=== PATIENT | male | born 1985 | race Caucasian/White ===

== ENCOUNTER 2023-05-02 | Emergency (ER) | payer OTHER, SELFPAY ==
[2023-05-02 00:05] VITALS: BP 165/83; PULSE 64; RESP 16; TEMP 36.7; O2SAT 99; BMI 20.4
--- NOTE | 2023-05-02 00:15 | CT_ITS ---
[address] [address] Patient Name: ANA GARNER MRN: [id number] date: 1985 Sex: M Assigned Patient Location: ER Current Patient Location: ER Accession/Order Number: [id number] Exam Date: 05/02/2023 00:20 Report Date: 05/02/2023 00:58 At the request of: TONIO SCOTT Procedure: CT cervical spine wo con EXAM: CT head/brain wo con, CT cervical spine wo con HISTORY: head injury COMPARISON: 12/16/2018 TECHNIQUE: Axial CT scans through the head and cervical spine were obtained without IV contrast administration. Dose reduction techniques were achieved by using: automated exposure control and/or adjustment of mA and /or kV according to patient size and/or use of iterative reconstruction technique. CT BRAIN FINDINGS: There is no evidence of acute intracranial hemorrhage or abnormal extra-axial fluid collection. No mass effect or midline shift is seen. There is no evidence of large acute territorial infarction. There is no hydrocephalus. No definite acute fracture is identified. There is mild soft tissue swelling at the vertex. The visualized orbits show no abnormal mass. The visualized paranasal sinuses show no air-fluid level. Mastoid air cells are clear. IMPRESSION: No CT evidence of acute intracranial abnormality. Mild soft tissue swelling at the vertex. CT CERVICAL SPINE FINDINGS: No acute fracture or posttraumatic malalignment is seen. There are multilevel mild posterior spurring. There are mild posterior disc bulging at C3-4, C4-5 and C5-6 levels. There is no significant central canal or neural foramina narrowing. The prevertebral soft tissue space appears normal. Visualized neck shows no adenopathy. There are mild emphysematous changes in bilateral lung apices. IMPRESSION: No acute fracture or posttraumatic malalignment. Mild cervical spondylosis. Electronically authenticated by: LAMAR MARTINEZU Date: 05/02/2023 00:58
--- NOTE | 2023-05-02 00:15 | CT_ITS ---
[address] [address] Patient Name: ANA GARNER MRN: [id number] date: 1985 Sex: M Assigned Patient Location: ER Current Patient Location: ER Accession/Order Number: [id number] Exam Date: 05/02/2023 00:20 Report Date: 05/02/2023 00:58 At the request of: TONIO SCOTT Procedure: CT head/brain wo con EXAM: CT head/brain wo con, CT cervical spine wo con HISTORY: head injury COMPARISON: 12/16/2018 TECHNIQUE: Axial CT scans through the head and cervical spine were obtained without IV contrast administration. Dose reduction techniques were achieved by using: automated exposure control and/or adjustment of mA and /or kV according to patient size and/or use of iterative reconstruction technique. CT BRAIN FINDINGS: There is no evidence of acute intracranial hemorrhage or abnormal extra-axial fluid collection. No mass effect or midline shift is seen. There is no evidence of large acute territorial infarction. There is no hydrocephalus. No definite acute fracture is identified. There is mild soft tissue swelling at the vertex. The visualized orbits show no abnormal mass. The visualized paranasal sinuses show no air-fluid level. Mastoid air cells are clear. IMPRESSION: No CT evidence of acute intracranial abnormality. Mild soft tissue swelling at the vertex. CT CERVICAL SPINE FINDINGS: No acute fracture or posttraumatic malalignment is seen. There are multilevel mild posterior spurring. There are mild posterior disc bulging at C3-4, C4-5 and C5-6 levels. There is no significant central canal or neural foramina narrowing. The prevertebral soft tissue space appears normal. Visualized neck shows no adenopathy. There are mild emphysematous changes in bilateral lung apices. IMPRESSION: No acute fracture or posttraumatic malalignment. Mild cervical spondylosis. Electronically authenticated by: LAMAR TALBOT Date: 05/02/2023 00:58
--- NOTE | 2023-05-02 00:17 | ED_ITS ---
HPI - Head Injury General Chief complaint: Head Injury Stated complaint: HEAD INJURY/FALL Time Seen by Provider: 05/02/23 00:15 Source: patient Mode of arrival: ambulance Limitations: no limitations History of Present Illness HPI Narrative: drinking alcohol at home tonight. loss his balance and fell striking the counter top. did loose consciousness. Was able to get up. Lacerated his occipital scalp and called squad. Arrives AxOx4 and communicating with clear speech. Knows what happen to him. Denies other injury MD Complaint: Reports head injury Related Data Allergies Allergy/AdvReac Type Severity Reaction Status Date / Time No Known Drug Allergies Allergy Verified 05/02/23 00:12 Review of Systems ROS Status of ROS 10 or more systems reviewed and unremarkable except as noted in history and below [facility] Social History Smoking status: Current every day smoker Exam Constitutional Vital Signs - 24 hr 05/02/23 00:05 Temperature 98.1 F Pulse Rate [Monitor] 64 Respiratory Rate 16 Blood Pressure [Left Arm] 165/83 H Pulse Oximetry 99 Oxygen Delivery Method Room Air Common normals: no apparent distress, oriented x3, healthy appearing, alert and well nourished [facility] Head and scalp: laceration (occipital ) Neck & C-Spine Other: neck in hard C-collar Chest Common normals: inspection of chest normal, palpation of chest normal and inspection of breasts normal Respiratory Common normals: normal respiratory effort, no retractions and no use of accessory muscles Cardio Common normals: regular rate, regular rhythm, S1 normal heart sound and S2 normal heart sound Extremity Common normals: normal to inspection and full ROM Neuro Common normals: oriented x3, CN's II-XII intact bilaterally, moves all extremities and no focal motor deficits Psych Appearance: grossly normal Course Vital Signs Vital signs: Vital Signs Temperature 98.1 F 05/02/23 00:05 Pulse Rate 64 05/02/23 00:05 Respiratory Rate 16 05/02/23 00:05 Blood Pressure 165/83 H 05/02/23 00:05 Pulse Oximetry 99 05/02/23 00:05 Oxygen Delivery Method Room Air 05/02/23 00:05 Temperature 98.1 F 05/02/23 00:05 Pulse Rate 64 05/02/23 00:05 Respiratory Rate 16 05/02/23 00:05 Blood Pressure 165/83 H 05/02/23 00:05 Pulse Oximetry 99 05/02/23 00:05 Oxygen Delivery Method Room Air 05/02/23 00:05 MDM - Head Injury MDM Narrative Medical decision making narrative: patient drinking alcohol at home and fell striking the counter with the back of his head. Did loose consciousness for a short while. presents AxOx4. lac occipital scalp repaired with kermit. CT brain and C-spine without acute findngs. alcohol level 290s. Despite is alcohol level he is awake and talking with clear speech. Patient and family informed of the elevated alcohol level but are comfortable going home. Lab Data Labs: Lab Results 05/02/23 Range/Units 00:36 WBC 6.5 (4.0-11.0) 10^3/uL RBC 4.72 (4.70-6.10) 10^6/uL Hgb 15.8 (14.0-18.0) g/dL Hct 44.1 (42.0-54.0) % MCV 93.4 (80.0-94.0) fL MCH 33.5 (25.9-34.0) pg MCHC 35.8 H (29.9-35.2) g/dL RDW 12.3 (11.0-15.0) % Plt Count 241 (150-450) 10^3/uL MPV 8.4 L (9.5-13.5) fL Neut % (Auto) 48.5 (43.0-75.0) % Lymph % (Auto) 40.7 (20.5-60.0) % [place] % (Auto) 7.1 (1.7-12.0) % Eos % (Auto) 2.3 (0.9-7.0) % Baso % (Auto) 0.9 (0.2-2.0) % Neut # (Auto) 3.2 (1.4-6.5) 10^3/uL Lymph # (Auto) 2.7 (1.2-3.8) 10^3/uL [place] # (Auto) 0.5 (0.3-0.8) 10^3/uL Eos # (Auto) 0.2 (0.0-0.7) 10^3/uL Baso # (Auto) 0.1 (0.0-0.1) 10^3/uL Abs Immat Gran (auto) 0.03 (0.00-0.03) 10^3/uL Imm/Tot Granulo (auto) 0.5 (0.0-0.5) % Sodium 144 (136-145) mmol/L Potassium 3.9 (3.5-5.1) mmol/L Chloride 106 (98-107) mmol/L Carbon Dioxide 29.1 (21.0-32.0) mmol/L Anion Gap 12.8 BUN 8.0 (7.0-18.0) mg/dL Creatinine 0.93 (0.70-1.30) mg/dL Est GFR ( Amer) >60 (>=60) Est GFR (Non-Af Amer) >60 (>=60) BUN/Creatinine Ratio 8.6 Glucose 104 (74-106) mg/dL Calcium 8.7 (8.5-10.1) mg/dL Total Bilirubin 0.3 (0.2-1.0) mg/dL AST 24 (15-37) U/L ALT 30 (16-63) U/L Alkaline Phosphatase 97 (46-116) U/L Total Protein 7.6 (6.4-8.2) g/dL Albumin 3.9 (3.4-5.0) g/dL Globulin 3.7 g/dL Albumin/Globulin Ratio 1.1 Ethanol Quant 297 mg/dL Discharge Plan Discharge Chief Complaint: Head Injury Clinical Impression: Laceration of occipital region of scalp, Closed head injury, Concussion with loss of consciousness Instructions: Concussion (ED), Head Laceration (ED) Additional Instructions: have wound rechecked in 3-4 days and kermit removed in 10 Stand Alone Forms: Portal Instructions Referrals: Fawad Phipps MD [Physician] - 1 week Procedures ED Procedure Instructions Procedures Procedures: 5cm occipital laceration. linear lac. no associated swelling. Site cleaned with betadine and rinsed with saline. closed with # 9 kermit. Tolerated well
[2023-05-02 00:42] LABS: Basophils Absolute Auto 0.1 10^3/uL (0.0-0.1); Basophils Percent Auto 0.9 % (0.2-2.0); Eosinophils Absolute Auto 0.2 10^3/uL (0.0-0.7); Eosinophils Percent Auto 2.3 % (0.9-7.0); Hematocrit 44.1 % (42.0-54.0); Hemoglobin 15.8 g/dL (14.0-18.0); Immature Granulocytes Abs Auto 0.03 10^3/uL (0.00-0.03); Immature Granulocytes Pct Auto 0.5 % (0.0-0.5); Lymphocytes Absolute Auto 2.7 10^3/uL (1.2-3.8); Lymphocytes Percent Auto 40.7 % (20.5-60.0); Mean Corpuscular HGB Conc 35.8 g/dL (29.9-35.2); Mean Corpuscular Hemoglobin 33.5 pg (25.9-34.0); Mean Corpuscular Volume 93.4 fL (80.0-94.0); Mean Platelet Volume 8.4 fL (9.5-13.5); Monocytes Absolute Auto 0.5 10^3/uL (0.3-0.8); Monocytes Percent Auto 7.1 % (1.7-12.0); Neutrophils Absolute Auto 3.2 10^3/uL (1.4-6.5); Neutrophils Percent Auto 48.5 % (43.0-75.0); Platelet Count 241 10^3/uL (150-450); Red Blood Count 4.72 10^6/uL (4.70-6.10); Red Cell Distribution Width 12.3 % (11.0-15.0); White Blood Count 6.5 10^3/uL (4.0-11.0)
[2023-05-02] MEDS: ADACEL DIPH,PERTUSS(ACELL),TET VAC/PF 0.5 ML ADULT SYRINGE IM (00:55)
[2023-05-02 00:57] LABS: Alanine Aminotransferase 30 U/L (16-63); Albumin Globulin Ratio 1.1; Albumin Level 3.9 g/dL (3.4-5.0); Alkaline Phosphatase 97 U/L (46-116); Anion Gap 12.8; Aspartate Amino Transferase 24 U/L (15-37); BUN Creatinine Ratio 8.6; Bilirubin Total 0.3 mg/dL (0.2-1.0); Calcium 8.7 mg/dL (8.5-10.1); Carbon Dioxide 29.1 mmol/L (21.0-32.0); Chloride 106 mmol/L (98-107); Estimated GFR (African America >60 (>=60); Estimated GFR (Non-African Ame >60 (>=60); Ethanol 297 mg/dL; Globulin 3.7 g/dL; Glucose 104 mg/dL (74-106); Potassium 3.9 mmol/L (3.5-5.1); Sodium 144 mmol/L (136-145); Total Protein 7.6 g/dL (6.4-8.2)
== END 2023-05-02 05:55 | disposition home or self-care (01) ==
PROVIDERS: Emergency Provider Internal Medicine
DX: S01.01XA Laceration without foreign body of scalp, initial encounter (principal); S09.8XXA Other specified injuries of head, initial encounter; S06.0X1A Concussion with loss of consciousness of 30 minutes or less, initial encounter; W19.XXXA Unspecified fall, initial encounter; Z23 Encounter for immunization; F17.210 Nicotine dependence, cigarettes, uncomplicated
CPT/HCPCS: 12001; 36415; 70450; 72125; 80053; 80320; 85025; 90471; 90715; 99284

== ENCOUNTER 2023-11-11 07:40 | Emergency (ER) | payer OTHER, SELFPAY ==
[2023-11-11 07:43] VITALS: BP 149/82; PULSE 63; RESP 16; TEMP 36.5; O2SAT 97; BMI 21.8
[2023-11-11 07:45] VITALS: BP 149/82
--- NOTE | 2023-11-11 07:52 | ECG_ITS ---
[facility] Test Date: 2023-11-11 Pat Name: ANA GARNER Department: Room: - Gender: Male [employer]: : 1985 Requested By: Order Number: [id number] Reading MD: GEGE FARIAS Measurements Intervals [place] Rate: 55 P: 53 CA: 132 QRS: 50 QRSD: 102 T: 58 QT: 420 QTc: 409 Interpretive Statements 1100 Sinus bradycardia 2440 Incomplete right bundle branch block 9130 borderline ECG No previous ECG available for comparison Electronically Signed On 11-13-2023 12:06:06 EST by GEGE FARIAS
--- NOTE | 2023-11-11 07:53 | ED.SYNCOPE1 ---
HPI - Syncope General Chief Complaint: Syncope Stated Complaint: SYNCOPE Time Seen by Provider: 11/11/23 07:45 Source: patient Mode of arrival: Wheelchair History of Present Illness HPI narrative: 38-year-old male presents for syncope. She hasn't been feeling well for about four days. He's had cough and congestion and his appetite has been poor. He's been nauseous but no vomiting or diarrhea. He passed out and his friend's truck today. No injury. Related Data Previous Rx's Medication Instructions Recorded ondansetron 4 mg disintegrating 4 mg PO Q6H PRN nausea and 11/11/23 tablet vomiting #20 tabs Allergies Allergy/AdvReac Type Severity Reaction Status Date / Time No Known Drug Allergies Allergy Verified 05/02/23 00:12 Review of Systems ROS Narrative A ten point review of systems is negative except as noted above. PFSH PFSH Social History Smoking status: Current every day smoker Exam Narrative Exam Narrative: Nurses note and vital signs reviewed and patient is not hypoxic. General: The patient appears well and in no apparent distress. Patient is resting comfortably on cart. Skin: Warm, dry, no pallor noted. There is no rash noted. Head: Normocephalic, atraumatic Eye: Normal conjunctiva, no drainage Ears, Nose, Mouth, and Throat: oral mucosa is moist. Nares patent. Cardiovascular: Regular Rate and Rhythm Respiratory: Patient is in no distress, no accessory muscle use, lungs are clear to auscultation, no wheezing, rales or rhonchi Back: non-tender GI: Normal bowel sounds, no tenderness to palpation, no masses appreciated. No rebound, guarding, or rigidity noted. Musculoskeletal: The patient has no evidence of calf tenderness, no pitting edema, symmetrical pulses noted bilaterally Neurological: A&O, normal speech Psychiatric: Cooperative Constitutional Vital Signs, click to edit/add: Last Vital Signs Temp 97.7 F 11/11/23 07:43 Pulse 49 L 11/11/23 08:20 Resp 12 11/11/23 08:20 BP 139/80 11/11/23 07:59 Pulse Ox 96 11/11/23 08:20 O2 Del Method Room Air 11/11/23 07:43 Course Vital Signs Vital signs: Vital Signs Temperature 97.7 F 11/11/23 07:43 Pulse Rate 63 11/11/23 07:43 Respiratory Rate 16 11/11/23 07:43 Blood Pressure 149/82 H 11/11/23 07:43 Pulse Oximetry 97 11/11/23 07:43 Oxygen Delivery Method Room Air 11/11/23 07:43 Temperature 97.7 F 11/11/23 07:43 Pulse Rate 49 L 11/11/23 08:20 Respiratory Rate 12 11/11/23 08:20 Blood Pressure 139/80 11/11/23 07:59 Pulse Oximetry 96 11/11/23 08:20 Oxygen Delivery Method Room Air 11/11/23 07:43 MDM - Syncope MDM Narrative Medical decision making narrative: The patient's workup is negative and he feels improved after IV fluids. He'll be discharged home. Treatment diagnosis and follow-up were discussed with the patient. Differential Diagnosis Differential diagnosis: Likely other (viral illness, dehydration, acute kidney injury, cardiac dysrhythmia) Lab Data Attestation: I reviewed the patient's lab results. Labs: Lab Results 11/11/23 Range/Units 08:00 WBC 5.9 (4.0-11.0) 10^3/uL RBC 4.68 L (4.70-6.10) 10^6/uL Hgb 15.6 (14.0-18.0) g/dL Hct 43.3 (42.0-54.0) % MCV 92.5 (80.0-94.0) fL MCH 33.3 (25.9-34.0) pg MCHC 36.0 H (29.9-35.2) g/dL RDW 11.3 (11.0-15.0) % Plt Count 276 (150-450) 10^3/uL MPV 8.9 L (9.5-13.5) fL Neut % (Auto) 63.3 (43.0-75.0) % Lymph % (Auto) 23.6 (20.5-60.0) % [place] % (Auto) 10.8 (1.7-12.0) % Eos % (Auto) 1.2 (0.9-7.0) % Baso % (Auto) 0.8 (0.2-2.0) % Neut # (Auto) 3.8 (1.4-6.5) 10^3/uL Lymph # (Auto) 1.4 (1.2-3.8) 10^3/uL [place] # (Auto) 0.6 (0.3-0.8) 10^3/uL Eos # (Auto) 0.1 (0.0-0.7) 10^3/uL Baso # (Auto) 0.1 (0.0-0.1) 10^3/uL Abs Immat Gran (auto) 0.02 (0.00-0.03) 10^3/uL Imm/Tot Granulo (auto) 0.3 (0.0-0.5) % Sodium 140 (136-145) mmol/L Potassium 3.6 (3.5-5.1) mmol/L Chloride 102 (98-107) mmol/L Carbon Dioxide 31.4 (21.0-32.0) mmol/L Anion Gap 10.2 BUN 10.0 (7.0-18.0) mg/dL Creatinine 0.82 (0.70-1.30) mg/dL Est GFR ( Amer) >60 (>=60) Est GFR (Non-Af Amer) >60 (>=60) BUN/Creatinine Ratio 12.2 Glucose 109 H (74-106) mg/dL Calcium 8.9 (8.5-10.1) mg/dL Influenza Type A Ag Negative Influenza Type B Ag Negative SARS-CoV-2 Ag (CV2AG) Negative (NEGATIVE) ECG Data Attestation: I personally reviewed and interpreted this ECG as follows: (EKG on my interpretation shows normal sinus rhythm with no acute changes and a rate of 55.) Discharge Plan Discharge Chief Complaint: Syncope Clinical Impression: Syncope, Viral illness Patient Disposition: Home, Self-Care Time of Disposition Decision: 09:09 Condition: Good Mode of Transportation: Private Vehicle Prescriptions / Home Meds: New ondansetron 4 mg tablet,disintegrating 4 mg PO Q6H PRN (Reason: nausea and vomiting) Qty: 20 0RF Instructions: Syncope (ED), Viral Syndrome (ED) Stand Alone Forms: Portal Instructions Referrals: Physician,Non-Staff, MD [Primary Care Provider] - 1 week
[2023-11-11 07:57] VITALS: PULSE 63; RESP 20
[2023-11-11 07:59] VITALS: BP 139/80; PULSE 59; RESP 22; O2SAT 98
[2023-11-11] MEDS: 0.9 % SODIUM CHLORIDE 1,000 ML 1000 ML IV (08:09)
[2023-11-11] MEDS: ONDANSETRON PF 4 MG/2 ML VIAL IV (08:09)
[2023-11-11 08:10] VITALS: PULSE 59; RESP 21; O2SAT 99
[2023-11-11 08:12] LABS: Basophils Absolute Auto 0.1 10^3/uL (0.0-0.1); Basophils Percent Auto 0.8 % (0.2-2.0); Eosinophils Absolute Auto 0.1 10^3/uL (0.0-0.7); Eosinophils Percent Auto 1.2 % (0.9-7.0); Hematocrit 43.3 % (42.0-54.0); Hemoglobin 15.6 g/dL (14.0-18.0); Immature Granulocytes Abs Auto 0.02 10^3/uL (0.00-0.03); Immature Granulocytes Pct Auto 0.3 % (0.0-0.5); Lymphocytes Absolute Auto 1.4 10^3/uL (1.2-3.8); Lymphocytes Percent Auto 23.6 % (20.5-60.0); Mean Corpuscular Hemoglobin 33.3 pg (25.9-34.0); Mean Corpuscular Volume 92.5 fL (80.0-94.0); Mean Platelet Volume 8.9 fL (9.5-13.5); Monocytes Absolute Auto 0.6 10^3/uL (0.3-0.8); Monocytes Percent Auto 10.8 % (1.7-12.0); Neutrophils Absolute Auto 3.8 10^3/uL (1.4-6.5); Neutrophils Percent Auto 63.3 % (43.0-75.0); Platelet Count 276 10^3/uL (150-450); Red Blood Count 4.68 10^6/uL (4.70-6.10); Red Cell Distribution Width 11.3 % (11.0-15.0); White Blood Count 5.9 10^3/uL (4.0-11.0)
[2023-11-11 08:20] VITALS: PULSE 49; RESP 12; O2SAT 96
[2023-11-11 08:24] LABS: Anion Gap 10.2; BUN Creatinine Ratio 12.2; Calcium 8.9 mg/dL (8.5-10.1); Carbon Dioxide 31.4 mmol/L (21.0-32.0); Chloride 102 mmol/L (98-107); Estimated GFR (African America >60 (>=60); Estimated GFR (Non-African Ame >60 (>=60); Glucose 109 mg/dL (74-106); Influenza Virus A Antigen Negative; Influenza Virus B Antigen Negative; Internal Control Within Normal Limits; Potassium 3.6 mmol/L (3.5-5.1); SARS-CoV-2 Ag NEGATIVE (NEGATIVE); Sodium 140 mmol/L (136-145)
== END 2023-11-11 09:23 | disposition home or self-care (01) ==
PROVIDERS: Emergency Provider Emergency Medicine
DX: R55 Syncope and collapse (principal); B34.9 Viral infection, unspecified; F17.210 Nicotine dependence, cigarettes, uncomplicated; Z20.822 Contact with and (suspected) exposure to COVID-19
CPT/HCPCS: 36415; 80048; 85025; 87635; 87804; 87811; 93005; 96361; 96374; 99284; J2405

== ENCOUNTER 2024-05-18 16:07 | Emergency (ER) | payer OTHER, SELFPAY ==
[2024-05-18 16:12] VITALS: BP 136/80; PULSE 88; TEMP 36.5; O2SAT 98; BMI 20.2
--- NOTE | 2024-05-18 16:25 | ED_ITS ---
HPI HPI - Back Pain/Injury General Chief Complaint: Back Pain/Injury Stated Complaint: back pain Time Seen by Provider: 05/18/24 16:15 Source: patient Mode of arrival: walk-in Limitations: no limitations History of Present Illness HPI Narrative: Patient is here for prescription refill. Basically he had a traumatic injury, fell off of a tree approximately 35 feet and was taken to [facility]. He small he did see spine surgeon and has follow-up appointment in early June but he is of his oxycodone. He had I believe for fractures of his transverse process of her lumbar vertebrae. He has not incurred any further injuries since that time. He is not drinking alcohol while taking his medications. He also needs his muscle relaxant. 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 Vital signs are no does not have any abdominal pain this pain is located in the back area where his initial injury is. He is not having any respiratory distress. His skin mucous membranes are moist and pink with no evidence of pallor or anemia. He has no abdominal pain. He has full movement of the trunk torso or extremities. Cognition and mentation are normal. No ecchymosis or bruising is noted over the tarsal Constitutional Vital Signs, click to edit/add: Last Vital Signs Temp 97.7 F 05/18/24 16:12 Pulse 88 05/18/24 16:12 Resp 16 05/18/24 16:12 BP 136/80 05/18/24 16:12 Pulse Ox 98 05/18/24 16:12 Course Vital Signs Vital signs: Vital Signs Temperature 97.7 F 05/18/24 16:12 Pulse Rate 88 05/18/24 16:12 Respiratory Rate 16 05/18/24 16:12 Blood Pressure 136/80 05/18/24 16:12 Pulse Oximetry 98 05/18/24 16:12 Temperature 97.7 F 05/18/24 16:12 Pulse Rate 88 05/18/24 16:12 Respiratory Rate 16 05/18/24 16:12 Blood Pressure 136/80 05/18/24 16:12 Pulse Oximetry 98 05/18/24 16:12 Discharge Plan Discharge Stand Alone Forms: Portal Instructions Chief Complaint: Back Pain/Injury Clinical Impression: Medication refill Patient Disposition: Home, Self-Care Time of Disposition Decision: 16:27 Prescriptions / Home Meds: No Action No Known Home Medications Print Language: Kazakh Additional Instructions: Follow-up with your inbound ingredient logistics specialist as scheduled Referrals: Physician,Non-Staff, MD [Primary Care Provider] - 1 week
--- OUTSIDE RECORDS SUMMARY | 2024-05-18 16:25 | XMS_ITS | CCD ---
Author Organization [facility] Care Team Providers Care Tankage Supervisor Name Role Phone WADE ANDERSON Primary Care Unavailable EDWARDO HATCH Admitting Unavailable EDWARDO HATCH Attending Unavailable MISC, DOCTOR Consulting Unavailable MARKER, DIEGO Consulting Unavailable WADE ANDERSON Primary Care Unavailable HUGO MAE Admitting Unavailable HAY, HUGO Attending Unavailable SAIMA, MANUEL Allan Consulting Unavailable HAY, HUGO Consulting Unavailable JIM SOLORZANO Consulting Unavailable SOPHIE, EDWARDO Oliver Attending Unavailable NATA GERMAN Consulting Unavailable Problems Active Problems Problem Classification Problem Date Documented Date Episodic/Chronic Abdominal pain (5 sources) Right upper quadrant pain; Translations: [Unspecified abdominal pain] Onset: 05-22-2019 Episodic Nausea and vomiting (3 sources) Nausea with vomiting, unspecified; Translations: [NAUSEA WITH VOMITING UNSPECIFIED] Onset: 12-20-2019 Episodic Noninfectious gastroenteritis (1 source) Noninfective gastroenteritis and colitis, unspecified; Translations: [NONINFECTIVE GE AND COLITIS UNS] Onset: 12-22-2019 Episodic Other fractures (1 source) Unspecified fracture of unspecified lumbar vertebra, initial encounter for closed fracture; Translations: [Unspecified fracture of unspecified lumbar vertebra, initial encounter for closed fracture] Onset: 05-12-2024 Episodic Substance-related disorders (1 source) Nicotine dependence, cigarettes, uncomplicated; Translations: [NICOTINE DEPEND CIGARETTES UNCOMP] Onset: 05-24-2019 Chronic Past or Other Problems Problem Classification Problem Date Documented Da te Episodic/Chronic Residual codes; unclassified (1 source) Acquired absence of other specified parts of digestive tract; Translations: [ACQ ABSENCE OTH PART DIGESTV TRACT] Onset: 05-24-2019 Episodic Results Test Name Value Interpretation Reference Range Facility CT CHEST ABDOMEN PELVIS W CO NTRASTon 05-15-2024 CT CHEST ABDOMEN PELVIS W CONTRAST ADDENDUM: Additional history of pain anterior right in review of CT scan demonstrates a nondisplaced fracture of the right anterior 2nd rib. The findings were sent to the Radiology Results Communication [facility] at 10:07 am on 05/15/2024 to be communicated to a licensed caregiver. Electronically Signed by: MAXIMINO PHILLIPS on WedMay 15, 2024 10:11:06 AM EDT EXAMINATION: CT OF THE CHEST, ABDOMEN, AND PELVIS WITH CONTRAST; CT OF THE LUMBAR SPINE WITHOUT CONTRAST; CT OF THE THORACIC SPINE WITHOUT CONTRAST 05/12/2024 10:20 am TECHNIQUE: CT of the chest, abdomen and pelvis was performed with the administration of intravenous contrast. Multiplanar reformatted images are provided for review. Automated exposure control, iterative reconstruction, and/or weight based adjustment of the mA/kV was utilized to reduce the radiation dose to as low as reasonably achievable.; CT of the lumbar spine was performed without the administration of intravenous contrast. Multiplanar reformatted images are provided for review. Adjustment of mA and/or kV according to patient size was utilized. Automated exposure control, iterative reconstruction, and/or weight based adjustment of the mA/kV was utilized to reduce the radiation dose to as low as reasonably achievable.; CT of the thoracic spine was performed without the administration of intravenous contrast. Multiplanar reformatted images are provided for review. Automated exposure control, iterative reconstruction, and/or weight based adjustment of the mA/kV was utilized to reduce the radiation dose to as low as reasonably achievable. COMPARISON: None HISTORY: ORDERING SYSTEM PROVIDED HISTORY: fall from 40 ft tree TECHNOLOGIST PROVIDED HISTORY: fall from 40 ft tree Reason for Exam: fall from 40 ft tree; ORDERING SYSTEM PROVIDED HISTORY: TRAUMA TECHNOLOGIST PROVIDED HISTORY: trauma Reason for Exam: trauma; ORDERING SYSTEM PROVIDED HISTORY: trauma TECHNOLOGIST PROVIDED HISTORY: trauma Reason for Exam: trauma CHEST: Lines and tubes: None Mediastinum and Hilum: No enlarged lymph nodes Heart and Vasculature: Mild coronary calcifications. Pleura: No effusions Lungs and airways: Minimal patchy ground-glass opacity seen at the right lung base could relate to the small contusion or even aspiration. 2 nodule in the left lower lobe on image 88. ABDOMEN/PELVIS: EG junction, stomach and duodenal sweep: Unremarkable Liver: Unremarkable Gallbladder: Unremarkable Biliary tree: Unremarkable Pancreas: Unremarkable for patient's age. Spleen: Unremarkable Kidneys and ureters: Unremarkable Adrenal glands: Unremarkable Retroperitoneal structures: Unremarkable Small bowel and colon: No evidence of a bowel obstruction or free air Appendix: Not seen Urinary bladder: Unremarkable Free fluid/air: None Lymph nodes: No enlarged lymph nodes Osseus structures: No destructive lesion Vasculature: No aneurysm Other: None Thoracic and lumbar spine: There is normal anatomic alignment. No evidence of thoracic spine injury. There are 5 znx-rlr-cwxdeov lumbar type vertebral bodies. There are fractures of the right L2 through L5 transverse processes on the right. IMPRESSION: 1. 6 lumbar type vertebral bodies with fractures of the right L2 through L5 transverse processes. 2. Patchy right lower lobe airspace opacity could relate to aspiration or small pulmonary contusion. Interpreted by: Maximino Phillips MD Signed by: Maximino Phillips MD 05/15/24 Edited Result - FINAL Normal [facility] CT LUMBAR SPINE BONY RECONST RUCTIONon 05-15-2024 CT LUMBAR SPINE BONY RECONSTRUCTION ADDENDUM: Additional history of pain anterior right in review of CT scan demonstrates a nondisplaced fracture of the right anterior 2nd rib. The findings were sent to the Radiology Results Communication Center at 10:07 am on 05/15/2024 to be communicated to a licensed caregiver. Electronically Signed by: MAXIMINO PHILLIPS on WedMay 15, 2024 10:11:06 AM EDT EXAMINATION: CT OF THE CHEST, ABDOMEN, AND PELVIS WITH CONTRAST; CT OF THE LUMBAR SPINE WITHOUT CONTRAST; CT OF THE THORACIC SPINE WITHOUT CONTRAST 05/12/2024 10:20 am TECHNIQUE: CT of the chest, abdomen and pelvis was performed with the administration of intravenous contrast. Multiplanar reformatted images are provided for review. Automated exposure control, iterative reconstruction, and/or weight based adjustment of the mA/kV was utilized to reduce the radiation dose to as low as reasonably achievable.; CT of the lumbar spine was performed without the administration of intravenous contrast. Multiplanar reformatted images are provided for review. Adjustment of mA and/or kV according to patient size was utilized. Automated exposure control, iterative reconstruction, and/or weight based adjustment of the mA/kV was utilized to reduce the radiation dose to as low as reasonably achievable.; CT of the thoracic spine was performed without the administration of intravenous contrast. Multiplanar reformatted images are provided for review. Automated exposure control, iterative reconstruction, and/or weight based adjustment of the mA/kV was utilized to reduce the radiation dose to as low as reasonably achievable. COMPARISON: None HISTORY: ORDERING SYSTEM PROVIDED HISTORY: fall from 40 ft tree TECHNOLOGIST PROVIDED HISTORY: fall from 40 ft tree Reason for Exam: fall from 40 ft tree; ORDERING SYSTEM PROVIDED HISTORY: TRAUMA TECHNOLOGIST PROVIDED HISTORY: trauma Reason for Exam: trauma; ORDERING SYSTEM PROVIDED HISTORY: trauma TECHNOLOGIST PROVIDED HISTORY: trauma Reason for Exam: trauma CHEST: Lines and tubes: None Mediastinum and Hilum: No enlarged lymph nodes Heart and Vasculature: Mild coronary calcifications. Pleura: No effusions Lungs and airways: Minimal patchy ground-glass opacity seen at the right lung base could relate to the small contusion or even aspiration. 2 nodule in the left lower lobe on image 88. ABDOMEN/PELVIS: EG junction, stomach and duodenal sweep: Unremarkable Liver: Unremarkable Gallbladder: Unremarkable Biliary tree: Unremarkable Pancreas: Unremarkable for patient's age. Spleen: Unremarkable Kidneys and ureters: Unremarkable Adrenal glands: Unremarkable Retroperitoneal structures: Unremarkable Small bowel and colon: No evidence of a bowel obstruction or free air Appendix: Not seen Urinary bladder: Unremarkable Free fluid/air: None Lymph nodes: No enlarged lymph nodes Osseus structures: No destructive lesion Vasculature: No aneurysm Other: None Thoracic and lumbar spine: There is normal anatomic alignment. No evidence of thoracic spine injury. There are 5 hen-xbf-mawotok lumbar type vertebral bodies. There are fractures of the right L2 through L5 transverse processes on the right. IMPRESSION: 1. 6 lumbar type vertebral bodies with fractures of the right L2 through L5 transverse processes. 2. Patchy right lower lobe airspace opacity could relate to aspiration or small pulmonary contusion. Interpreted by: Maximino Phillips MD Signed by: Maximino Phillips MD 05/15/24 Edited Result - FINAL Normal [facility] CT THORACIC SPINE BONY RECON STRUCTIONon 05-15-2024 CT THORACIC SPINE BONY RECONSTRUCTION ADDENDUM: Additional history of pain anterior right in review of CT scan demonstrates a nondisplaced fracture of the right anterior 2nd rib. The findings were sent to the Radiology Results Communication Center at 10:07 am on 05/15/2024 to be communicated to a licensed caregiver. Electronically Signed by: MAXIMINO PHILLIPS on WedMay 15, 2024 10:11:06 AM EDT EXAMINATION: CT OF THE CHEST, ABDOMEN, AND PELVIS WITH CONTRAST; CT OF THE LUMBAR SPINE WITHOUT CONTRAST; CT OF THE THORACIC SPINE WITHOUT CONTRAST 05/12/2024 10:20 am TECHNIQUE: CT of the chest, abdomen and pelvis was performed with the administration of intravenous contrast. Multiplanar reformatted images are provided for review. Automated exposure control, iterative reconstruction, and/or weight based adjustment of the mA/kV was utilized to reduce the radiation dose to as low as reasonably achievable.; CT of the lumbar spine was performed without the administration of intravenous contrast. Multiplanar reformatted images are provided for review. Adjustment of mA and/or kV according to patient size was utilized. Automated exposure control, iterative reconstruction, and/or weight based adjustment of the mA/kV was utilized to reduce the radiation dose to as low as reasonably achievable.; CT of the thoracic spine was performed without the administration of intravenous contrast. Multiplanar reformatted images are provided for review. Automated exposure control, iterative reconstruction, and/or weight based adjustment of the mA/kV was utilized to reduce the radiation dose to as low as reasonably achievable. COMPARISON: None HISTORY: ORDERING SYSTEM PROVIDED HISTORY: fall from 40 ft tree TECHNOLOGIST PROVIDED HISTORY: fall from 40 ft tree Reason for Exam: fall from 40 ft tree; ORDERING SYSTEM PROVIDED HISTORY: TRAUMA TECHNOLOGIST PROVIDED HISTORY: trauma Reason for Exam: trauma; ORDERING SYSTEM PROVIDED HISTORY: trauma TECHNOLOGIST PROVIDED HISTORY: trauma Reason for Exam: trauma CHEST: Lines and tubes: None Mediastinum and Hilum: No enlarged lymph nodes Heart and Vasculature: Mild coronary calcifications. Pleura: No effusions Lungs and airways: Minimal patchy ground-glass opacity seen at the right lung base could relate to the small contusion or even aspiration. 2 nodule in the left lower lobe on image 88. ABDOMEN/PELVIS: EG junction, stomach and duodenal sweep: Unremarkable Liver: Unremarkable Gallbladder: Unremarkable Biliary tree: Unremarkable Pancreas: Unremarkable for patient's age. Spleen: Unremarkable Kidneys and ureters: Unremarkable Adrenal glands: Unremarkable Retroperitoneal structures: Unremarkable Small bowel and colon: No evidence of a bowel obstruction or free air Appendix: Not seen Urinary bladder: Unremarkable Free fluid/air: None Lymph nodes: No enlarged lymph nodes Osseus structures: No destructive lesion Vasculature: No aneurysm Other: None Thoracic and lumbar spine: There is normal anatomic alignment. No evidence of thoracic spine injury. There are 5 whu-pev-xafjlmt lumbar type vertebral bodies. There are fractures of the right L2 through L5 transverse processes on the right. IMPRESSION: 1. 6 lumbar type vertebral bodies with fractures of the right L2 through L5 transverse processes. 2. Patchy right lower lobe airspace opacity could relate to aspiration or small pulmonary contusion. Interpreted by: Maximino Phillips MD Signed by: Maximino Phillips MD 05/15/24 Edited Result - FINAL Normal [facility] CT CERVICAL SPINE WO CONTRAS Ton 05-12-2024 CT CERVICAL SPINE WO CONTRAST EXAMINATION: CT OF THE CERVICAL SPINE WITHOUT CONTRAST 05/12/2024 10:20 am TECHNIQUE: CT of the cervical spine was performed without the administration of intravenous contrast. Multiplanar reformatted images are provided for review. Automated exposure control, iterative reconstruction, and/or weight based adjustment of the mA/kV was utilized to reduce the radiation dose to as low as reasonably achievable. COMPARISON: None HISTORY: ORDERING SYSTEM PROVIDED HISTORY: trauma TECHNOLOGIST PROVIDED HISTORY: trauma Reason for Exam: trauma FINDINGS: BONES/ALIGNMENT: There is no acute fracture or traumatic malalignment. DEGENERATIVE CHANGES: No significant degenerative changes. SOFT TISSUES: There is no prevertebral soft tissue swelling. IMPRESSION: No acute abnormality of the cervical spine. Interpreted by: Hayley Pickett MD Signed by: Hayley Pickett MD 05/12/24 Final result Normal [facility] CT HEAD WO CONTRASTon 2023 CT HEAD WO CONTRAST EXAMINATION: CT OF THE HEAD WITHOUT CONTRAST 05/12/2024 10:20 am TECHNIQUE: CT of the head was performed without the administration of intravenous contrast. Automated exposure control, iterative reconstruction, and/or weight based adjustment of the mA/kV was utilized to reduce the radiation dose to as low as reasonably achievable. COMPARISON: None. HISTORY: ORDERING SYSTEM PROVIDED HISTORY: trauma TECHNOLOGIST PROVIDED HISTORY: trauma Reason for Exam: trauma FINDINGS: BRAIN/VENTRICLES: The ventricles are normal in size. The sulci are normally formed over the convexities bilaterally. No extra-axial fluid collections. No sign of recent intracranial hemorrhage. Brain parenchymal attenuation is normal. No mass lesions on this noncontrast study. ORBITS: The visualized portion of the orbits demonstrate no acute abnormality. SINUSES: The visualized paranasal sinuses and mastoid air cells demonstrate no acute abnormality. SOFT TISSUES/SKULL: No acute abnormality of the visualized skull or soft tissues. IMPRESSION: No acute intracranial abnormality. Interpreted by: Vinicio Rowland IV, MD Signed by: Vinicio Rowland IV, MD 05/12/24 Final result Normal [facility] Trauma Profileon 05-12-2024 Anion gap [Moles/Vol] 15 mmol/L Normal 9-16 [facility] Comment on above: Performed By: #### E RTPF #### [address] [address] Bridge Crane Operator: Juan David Stewart MD Chloride [Moles/Vol] 105 mmol/L Normal 98-107 [facility] Comment on above: Performed By: #### E RTPF #### [address] [address] Bridge Crane Operator: Juan David Stewart MD CO2 [Moles/Vol] 23 mmol/L Normal 20-31 [facility] Comment on above: Performed By: #### E RTPF #### [address] [address] Bridge Crane Operator: Juan David Stewart MD Creatinine [Mass/Vol] 0.8 mg/dL Normal 0.70-1.20 [facility] Comment on above: Performed By: #### E RTPF #### [address] [address] Bridge Crane Operator: Juan David Stewart MD Ethanol [Mass/Vol] 159 mg/dL High <10 [facility] Comment on above: Performed By: #### E RTPF #### [address] [address] Bridge Crane Operator: Juan David Stewart MD Ethanol percent 0.159 % High <0.010 [facility] Comment on above: Performed By: #### E RTPF #### [address] [address] Bridge Crane Operator: Juan David Stewart MD GFR/1.73 sq M.predicted among non-blacks MDRD (S/P/Bld) [Vol rate/Area] 60 mL/min/{1.73_m2} Low >60 [facility] Comment on above: Result Comment: These results are not intended for use in patients <18 years of age. eGFR results are calculated without a race factor using the 2020 CKD-EPI equation. Careful clinical correlation is recommended, particularly when comparing to results calculated using previous equations. The CKD-EPI equation is less accurate in patients with extremes of muscle mass, extra-renal metabolism of creatine, excessive creatine ingestion, or following therapy that affects renal tubular secretion. Performed By: #### E RTPF #### [facility] [employer] [address] [place] [address] Bridge Crane Operator: Juan David Stewart MD Glucose [Mass/Vol] 102 mg/dL High 74-99 [facility] Comment on above: Performed By: #### E RTPF #### [facility] [employer] [address] [place] [address] Bridge Crane Operator: Juan David Stewart MD Potassium [Moles/Vol] 3.7 mmol/L Normal 3.7-5.3 [facility] Comment on above: Result Comment: SPEC IMEN SLIGHTLY HEMOLYZED, RESULTS MAY BE ADVERSELY AFFECTED. Performed By: #### E RTPF #### [address] [address] Bridge Crane Operator: Juan David Stewart MD Sodium [Moles/Vol] 143 mmol/L Normal 136-145 [facility] Comment on above: Performed By: #### E RTPF #### [facility] [employer] [address] [place] [address] Bridge Crane Operator: Juan David Stewart MD Urea nitrogen [Mass/Vol] 9 mg/dL Normal 6-20 [facility] Comment on above: Result Comment: QA F LAGS AND/OR RANGES MODIFIED BY DEMOGRAPHIC UPDATE ON 05/12 AT 1447 Performed By: #### E RTPF #### [facility] [employer] [address] [place] [address] Bridge Crane Operator: Juan David Stewart MD Body Temp. 37.0 Normal [facility] Comment on above: Performed By: #### E RTPF #### [address] [address] Bridge Crane Operator: Juan David Stewart MD Carboxy Hgb 5.8 % High 0-5 [facility] Comment on above: Result Comment: Reference Range: Non-Smokers 0-2% Average Smoker 2-4% Heavy Smoker <10% Performed By: #### E RTPF #### [address] [address] Bridge Crane Operator: Juan David Stewart MD FIO2 INFORMATION NOT PROVIDED [facility] Comment on above: Performed By: #### E RTPF #### [address] [address] Bridge Crane Operator: Juan David Stewart MD HCO3 (Bld) [Moles/Vol] 25.2 mmol/L Normal 24-30 [facility] Comment on above: Performed By: #### E RTPF #### [address] [address] Bridge Crane Operator: Juan David Stewart MD Negative Base Excess 0.4 mmol/L Normal 0.0-2.0 [facility] Comment on above: Performed By: #### E RTPF #### [address] [address] Bridge Crane Operator: Juan David Stewart MD Oxygen saturation in Blood 86.6 % High 60.0-85.0 [facility] Comment on above: Performed By: #### E RTPF #### [address] [address] Bridge Crane Operator: Juan David Stewart MD pCO2 46.7 mm Hg Normal 39-55 [facility] Comment on above: Performed By: #### E RTPF #### [address] [address] Bridge Crane Operator: Juan David Stewart MD pH (Bld) 7.351 [pH] Normal 7.320-7.420 [facility] Comment on above: Performed By: #### E RTPF #### [address] [address] Bridge Crane Operator: Juan David Stewart MD pO2 52.3 mm Hg High 30-50 [facility] Comment on above: Performed By: #### E RTPF #### [address] [address] Bridge Crane Operator: Juan David Stewart MD aPTT Coag (Bld) [Time] 22.0 s Low 23.0-36.5 [facility] Comment on above: Result Comment: IV Heparin Therapy Range: 66.0-92.0 sec Performed By: #### E RTPF #### [address] [address] Bridge Crane Operator: Juan David Stewart MD INR Coag (PPP) [Relative time] 1.0 {INR} Normal [facility] Comment on above: Result Comment: Therapeutic Range: Moderate Anticoagulant Intensity: INR = 2.0-3.0 High Anticoagulant Intensity: INR = 2.5-3.5 Performed By: #### E RTPF #### [address] [address] Bridge Crane Operator: Juan David Stewart MD PT Coag (PPP) [Time] 12.7 s Normal 11.7-14.9 [facility] Comment on above: Performed By: #### E RTPF #### [address] [address] Bridge Crane Operator: Juan David Stewart MD Erythrocyte distribution width (RBC) [Ratio] 11.6 % Low 11.8-14.4 [facility] Comment on above: Performed By: #### E RTPF #### [address] [address] Bridge Crane Operator: Juan David Stewart MD Hematocrit (Bld) [Volume fraction] 44.9 % Normal 40.7-50.3 [facility] Comment on above: Performed By: #### E RTPF #### [address] [address] Bridge Crane Operator: Juan David Stewart MD Hemoglobin (Bld) [Mass/Vol] 15.7 g/dL Normal 13.0-17.0 [facility] Comment on above: Performed By: #### E RTPF #### [address] [address] Bridge Crane Operator: Juan David Stewart MD MCH (RBC) [Entitic mass] 33.0 pg Normal 25.2-33.5 [facility] Comment on above: Performed By: #### E RTPF #### [address] [address] Bridge Crane Operator: Juan David Stewart MD MCHC (RBC) [Mass/Vol] 35.0 g/dL High 28.4-34.8 [facility] Comment on above: Performed By: #### E RTPF #### [address] [address] Bridge Crane Operator: Juan David Stewart MD MCV (RBC) [Entitic vol] 94.3 fL Normal 82.6-102.9 [facility] Comment on above: Performed By: #### E RTPF #### [address] [address] Bridge Crane Operator: Juan David Stewart MD NRBC Automated 0.0 per 100 WBC Normal 0.0 [facility] Comment on above: Performed By: #### E RTPF #### [address] [address] Bridge Crane Operator: Juan David Stewart MD Platelet mean volume (Bld) [Entitic vol] 9.3 fL Normal 8.1-13.5 [facility] Comment on above: Performed By: #### E RTPF #### [address] [address] Bridge Crane Operator: Juan David Stewart MD Platelets (Bld) [#/Vol] 210 10*3/uL Normal 138-453 [facility] Comment on above: Performed By: #### E RTPF #### [address] [address] Bridge Crane Operator: Juan David Stewart MD RBC (Bld) [#/Vol] 4.76 10*6/uL Normal 4.21-5.77 [facility] Comment on above: Performed By: #### E RTPF #### [address] [address] Bridge Crane Operator: Juan David Stewart MD WBC (Bld) [#/Vol] 5.5 10*3/uL Normal 3.5-11.3 [facility] Comment on above: Performed By: #### E RTPF #### [address] [address] Bridge Crane Operator: Juan David Stewart MD Blood Bank BILL FOR SERVICES PERFORMED Normal [facility] Comment on above: Performed By: #### E RTPF #### [address] [address] Bridge Crane Operator: Juan David Stewart MD Type + Screenon 05-12-2024 Type + Screen Sample Expiration 05/15/2024,2359 Arm Band Number [id number] ABO/Rh(D) O NEGATIVE Antibody Screen NEGATIVE Normal [facility] Comment on above: Performed By: #### T YS #### [address] [place] [address] Bridge Crane Operator: Juan David Stewart MD AMYLASEon 12-20-2019 Amylase [Catalytic activity/Vol] 35 U/L Normal 31-110 [facility] Comment on above: Performed By: #### A MY, CMP, LIPA #### [facility] [address] [place] [id number] Alicia Keely BILIRUBIN CONJUGATED (DIRECT )on 12-20-2019 BILI, CONJUGATED 0.2 mg/dL Normal 0.0-0.3 [facility] Comment on above: Performed By: #### D AGRETT #### [facility] [address] [place] [id number] Alicia Keely CBC AUTO DIFFon 12-20-2019 Basophils (Bld) [#/Vol] 0.1 103/ul Normal 0.0-0.1 [facility] Comment on above: Performed By: #### C BC #### [facility] [address] [place] [phone] Alicia Keely Basophils/100 WBC (Bld) 1.0 % Normal 0.2-2.0 [facility] Comment on above: Performed By: #### C BC #### [facility] [address] [place] [address] Alicia Keely Eosinophils (Bld) [#/Vol] 0.1 103/ul Normal 0.0-0.7 [facility] Comment on above: Performed By: #### C BC #### [facility] [address] [place] [address] Alicia Keely Eosinophils/100 WBC (Bld) 1.7 % Normal 0.9-7.0 [facility] Comment on above: Performed By: #### C BC #### [facility] [address] [place] [phone] Alicia Keely Erythrocyte distribution width (RBC) [Ratio] 11.5 % Normal 11.0-15.0 [facility] Comment on above: Performed By: #### C BC #### [facility] [address] [phone] Alicia Keely Hematocrit (Bld) [Volume fraction] 45.0 % Normal 42.0-54.0 [facility] Comment on above: Performed By: #### C BC #### [facility] [address] [phone] Alicia Keely Hemoglobin (Bld) [Mass/Vol] 16.0 g/dL Normal 14.0-18.0 [facility] Comment on above: Performed By: #### C BC #### [facility] [address] [place], [place] [phone] Alicia Keely IG # 0.02 10e3/ul Normal 0.00-0.03 [facility] Comment on above: Performed By: #### C BC #### [facility] [address] [place] [address] Alicia Keely IG % 0.3 % Normal 0.0-0.5 [facility] Comment on above: Performed By: #### C BC #### [facility] [address] [place], [place] [phone] Alicia Keely Lymphocytes (Bld) [#/Vol] 1.3 103/ul Normal 1.2-3.8 [facility] Comment on above: Performed By: #### C BC #### [facility] [address] [place], [place] [phone] Alicia Keely Lymphocytes/100 WBC (Bld) 21.1 % Normal 20.5-60.0 [facility] Comment on above: Performed By: #### C BC #### [facility] [address] [place], [place] [phone] Alicia Keely MANUAL DIFF REQ NO Normal [facility] Comment on above: Performed By: #### C BC #### [facility] [address] [place], [place] [phone] Alicia Keely MCH (RBC) [Entitic mass] 32.4 pg Normal 25.9-34.0 [facility] Comment on above: Performed By: #### C BC #### [facility] [address] [place], [place] [phone] Alicia Keely MCHC (RBC) [Mass/Vol] 35.6 g/dL Critically high 29.9-35.2 [facility] Comment on above: Performed By: #### C BC #### [facility] [address] [place], [place] [address] Alicia Keely MCV (RBC) [Entitic vol] 91.1 fL Normal 80.0-94.0 [facility] Comment on above: Performed By: #### C BC #### [facility] [address] [phone] Alicia Keely Monocytes (Bld) [#/Vol] 0.5 103/ul Normal 0.3-0.8 [facility] Comment on above: Performed By: #### C BC #### [facility] [address] [place], [place] [phone] Alicia Keely Monocytes/100 WBC (Bld) 8.4 % Normal 1.7-12.0 [facility] Comment on above: Performed By: #### C BC #### [facility] [address] [place], [place] [phone] Alicia Keely Neutrophils (Bld) [#/Vol] 4.3 103/ul Normal 1.4-6.5 [facility] Comment on above: Performed By: #### C BC #### [facility] [address] [place], [place] [phone] Alicia Keely Neutrophils/100 WBC (Bld) 67.5 % Normal 43.0-75.0 [facility] Comment on above: Performed By: #### C BC #### [facility] [address] [place] [phone] Alicia Keely Platelet mean volume (Bld) [Entitic vol] 9.4 fL Critically low 9.5-13.5 [facility] Comment on above: Performed By: #### C BC #### [facility] [address] [place], [place] [phone] Alicia Keely Platelets (Bld) [#/Vol] 229 103/ul Normal 150-450 [facility] Comment on above: Performed By: #### C BC #### [facility] [address] [place], [place] [phone] Alicia Keely RBC (Bld) [#/Vol] 4.94 106/ul Normal 4.70-6.10 [facility] Comment on above: Performed By: #### C BC #### [facility] [address] [place], [place] [phone] Alicia Keely WBC (Bld) [#/Vol] 6.3 103/ul Normal 4.0-11.0 [facility] Comment on above: Performed By: #### C BC #### [facility] [address] [place], [place] [phone] Alicia Keely ER URINE PROFILEon 0 Bilirubin [Mass/Vol] Negative Normal NEGATIVE [facility] Comment on above: Performed By: #### E RUR #### [facility] [address] [place], [place] [phone] Alicia Keely BLOOD Negative Normal NEGATIVE [facility] Comment on above: Performed By: #### E RUR #### [facility] [address] [place] [address] Alicia Keely Clarity (U) CLEAR Normal [facility] Comment on above: Performed By: #### E RUR #### [facility] [address] [place], [place] [phone] Alicia Keely Color (U) YELLOW Normal YELLOW [facility] Comment on above: Performed By: #### E RUR #### [facility] [address] [place], [place] [phone] Alicia Keely ERUAHD A micrscopic examination will be performed if indicated. Normal [facility] Comment on above: Performed By: #### E RUR #### [facility] [address] [place], [place] [phone] Alicia Keely Glucose [Mass/Vol] Negative Normal NEGATIVE [facility] Comment on above: Performed By: #### E RUR #### [facility] [address] [place], [place] [phone] Alicia Keely Ketones Ql (U) Negative Normal NEGATIVE [facility] [place] Comment on above: Performed By: #### E RUR #### [facility] [address] [place], [place] [phone] Alicia Riggs Nitrite Ql (U) Negative Normal NEGATIVE [facility] [place] [facility] Comment on above: Performed By: #### E RUR #### [facility] [address] [place], [place] [phone] Alicia Riggs pH (Bld) 7.0 Normal 5-9 [facility] Comment on above: Performed By: #### E RUR #### [facility] [address] [place], [place] [phone] Alicia Riggs Protein (U) [Mass/Vol] Negative Normal [facility] Comment on above: Performed By: #### E RUR #### [facility] [address] [place], [place] [phone] Alicia Riggs SPEC GRAVITY 1.020 Normal 1.005-<=1.025 [facility] Comment on above: Performed By: #### E RUR #### [facility] [address] [place], [place] [phone] Alicia Riggs UR MICRO IND NOT INDICATED Normal [facility] Comment on above: Performed By: #### E RUR #### [facility] [address] [place], [place] [phone] Alicia Riggs Urobilinogen Qn (U) 2.0 EU/dl Normal [facility] Comment on above: Performed By: #### E RUR #### [facility] [address] [place], [place] [phone] Alicia Riggs WBC (Bld) [#/Vol] Negative Normal NEGATIVE [facility] Comment on above: Performed By: #### E RUR #### [facility] [address] [place], [place] [phone] Alicia Riggs LACTATE/LACTIC ACIDon 2019 Lactate [Moles/Vol] 1.0 mmol/L Normal 0.7-2.0 [facility] Comment on above: Performed By: #### D DIM #### [facility] [address] [place] [address] Alicia Riggs LIPASEon 12-20-2019 Lipase [Catalytic activity/Vol] 69.0 U/L Normal 23.0-300.0 [facility] Comment on above: Performed By: #### D DIM #### [facility] [address] [place], [place] [phone] Alicia Riggs PROF 14(COMP METB)on 020 Albumin [Mass/Vol] 4.0 g/dL Normal 3.5-5.0 [facility] Comment on above: Performed By: #### D DIM #### [facility] [address] [place], [place] [phone] Aliciakeo Riggs Albumin/Globulin [Mass ratio] 1.2 {ratio} Normal [facility] Comment on above: Performed By: #### D DIM #### [facility] [address] [place], [place] [phone] Alicia Keely ALP [Catalytic activity/Vol] 85 U/L Normal 38-126 [facility] Comment on above: Performed By: #### D DIM #### [facility] [address] [place], [place] [phone] Aliciakeo Riggs ALT [Catalytic activity/Vol] 21 U/L Normal 21-72 [facility] Comment on above: Performed By: #### D DIM #### [facility] [address] [place], [place] [phone] Alicia Keely Anion gap [Moles/Vol] 11.8 mmol/L Normal [facility] Comment on above: Performed By: #### D DIM #### [facility] [address] [place], [place] [phone] Aliciakeo Riggs AST [Catalytic activity/Vol] 18 U/L Normal 17-59 [facility] Comment on above: Performed By: #### D DIM #### [facility] [address] [place], [place] [phone] Alicia Keely Bilirubin Ql (U) 1.2 mg/dL Normal 0.2-1.3 [facility] Comment on above: Performed By: #### D DIM #### [facility] [address] [place], [place] [phone] Alicia Keely Calcium [Mass/Vol] 9.5 mg/dL Normal 8.4-10.2 [facility] Comment on above: Performed By: #### D DIM #### [facility] [address] [phone] Alicia Keely Chloride [Moles/Vol] 106 mmol/L Normal 98-107 [facility] Comment on above: Performed By: #### D DIM #### [facility] [address] [address] Alicia Keely CO2 [Moles/Vol] 28.9 mmol/L Normal 22.0-30.0 [facility] Comment on above: Performed By: #### D DIM #### [facility] [address] [address] Alicia Keely Creatinine [Mass/Vol] 0.90 mg/dL Normal 0.66-1.25 [facility] Comment on above: Performed By: #### D DIM #### [facility] [address] [place], [place] [phone] Alicia Keely EGFR-AF LUXEMBOURGER >60 Normal >=60 [facility] Comment on above: Performed By: #### D DIM #### [facility] [address] [place] [address] Alicia Keely EGFR-NON AF LUXEMBOURGER >60 Normal >=60 [facility] Comment on above: Performed By: #### D DIM #### [facility] [address] [place], [place] [phone] Alicia Keely Globulin (S) [Mass/Vol] 3.3 g/dL Normal [facility] Comment on above: Performed By: #### D DIM #### [facility] [address] [place] [address] Alicia Keely Glucose [Mass/Vol] 100 mg/dL Normal 74-106 [facility] Comment on above: Performed By: #### D DIM #### [facility] [address] [place], [place] [phone] Alicia Keely Potassium [Moles/Vol] 3.7 mmol/L Normal 3.4-5.0 [facility] Comment on above: Performed By: #### D DIM #### [facility] [address] [place], [place] [phone] Alicia Keely Protein [Mass/Vol] 7.3 g/dL Normal 6.1-8.2 [facility] Comment on above: Performed By: #### D DIM #### [facility] [address] [place] [address] Alicia Keely Sodium [Moles/Vol] 143 mmol/L Normal 137-145 [facility] Comment on above: Performed By: #### D DIM #### [facility] [address] [place] [address] Alicia Keely Urea nitrogen [Mass/Vol] 13.0 mg/dL Normal 9.0-20.0 [facility] Comment on above: Performed By: #### D DIM #### [facility] [address] [place] [address] Alicia Keely Urea nitrogen/Creatinine [Mass ratio] 14.4 mg/mg Normal [facility] Comment on above: Performed By: #### D DIM #### [facility] [address] [place] [address] Alicia Keely CBC AUTO DIFFon 05-22-2019 Basophils (Bld) [#/Vol] 0.1 103/ul Normal 0.0-0.1 [facility] Comment on above: Performed By: #### C BC #### [facility] [address] [place] [address] Alicia Keely Basophils/100 WBC (Bld) 1.0 % Normal 0.2-2.0 [facility] Comment on above: Performed By: #### C BC #### [facility] [address] [place] [address] Alicia Keely Eosinophils (Bld) [#/Vol] 0.2 103/ul Normal 0.0-0.7 [facility] Comment on above: Performed By: #### C BC #### [facility] [address] [place] [address] Alicia Keely Eosinophils/100 WBC (Bld) 2.3 % Normal 0.9-7.0 [facility] Comment on above: Performed By: #### C BC #### [facility] [address] [place], [place] [phone] Aliciakeo Riggs Erythrocyte distribution width (RBC) [Ratio] 11.6 % Normal 11.0-15.0 [facility] Comment on above: Performed By: #### C BC #### [facility] [address] [place], [place] [phone] Alicia Keely Hematocrit (Bld) [Volume fraction] 44.2 % Normal 42.0-54.0 [facility] Comment on above: Performed By: #### C BC #### [facility] [address] [place] [address] Alicia Keely Hemoglobin (Bld) [Mass/Vol] 15.9 g/dL Normal 14.0-18.0 [facility] Comment on above: Performed By: #### C BC #### [facility] [address] [place] [address] Alicia Keely IG # 0.02 10e3/ul Normal 0.00-0.03 [facility] Comment on above: Performed By: #### C BC #### [facility] [address] [place] [address] Alicia Keely IG % 0.2 % Normal 0.0-0.5 [facility] Comment on above: Performed By: #### C BC #### [facility] [address] [place], [place] [phone] Alicia Keely Lymphocytes (Bld) [#/Vol] 1.7 103/ul Normal 1.2-3.8 [facility] Comment on above: Performed By: #### C BC #### [facility] [address] [place] [address] Alicia Keely Lymphocytes/100 WBC (Bld) 20.2 % Critically low 20.5-60.0 [facility] Comment on above: Performed By: #### C BC #### [facility] [address] [place], [place] [phone] Alicia Delgadoen MANUAL DIFF REQ NO Normal [facility] Comment on above: Performed By: #### C BC #### [facility] [address] [place], [place] [phone] Aliciakeo Delgadoen MCH (RBC) [Entitic mass] 32.9 pg Normal 25.9-34.0 [facility] Comment on above: Performed By: #### C BC #### [facility] [address] [place], [place] [phone] Alicia Riggs MCHC (RBC) [Mass/Vol] 36.0 g/dL Critically high 29.9-35.2 [facility] Comment on above: Performed By: #### C BC #### [facility] [address] [place], [place] [phone] Aliciakeo Riggs MCV (RBC) [Entitic vol] 91.5 fL Normal 80.0-94.0 [facility] Comment on above: Performed By: #### C BC #### [facility] [address] [place], [place] [phone] Alicia Keely Monocytes (Bld) [#/Vol] 0.9 103/ul Critically high 0.3-0.8 [facility] Comment on above: Performed By: #### C BC #### [facility] [address] [place], [place] [phone] Aliciakeo Delgadoen Monocytes/100 WBC (Bld) 10.5 % Normal 1.7-12.0 [facility] Comment on above: Performed By: #### C BC #### [facility] [address] [place], [place] [phone] Alicia Keely Neutrophils (Bld) [#/Vol] 5.6 103/ul Normal 1.4-6.5 [facility] Comment on above: Performed By: #### C BC #### [facility] [address] [place], [place] [phone] Alicia Keely Neutrophils/100 WBC (Bld) 65.8 % Normal 43.0-75.0 [facility] Comment on above: Performed By: #### C BC #### [facility] [address] [place], [place] [phone] Alicia Keely Platelet mean volume (Bld) [Entitic vol] 9.1 fL Critically low 9.5-13.5 [facility] Comment on above: Performed By: #### C BC #### [facility] [address] [place], [place] [address] Alicia Riggs Platelets (Bld) [#/Vol] 286 103/ul Normal 150-450 [facility] Comment on above: Performed By: #### C BC #### [facility] [address] [place], [place] [address] Alicia Riggs RBC (Bld) [#/Vol] 4.83 106/ul Normal 4.70-6.10 [facility] Comment on above: Performed By: #### C BC #### [facility] [address] [place], [place] [address] Alicia Riggs WBC (Bld) [#/Vol] 8.4 103/ul Normal 4.0-11.0 [facility] Comment on above: Performed By: #### C BC #### [facility] [address] [place], [place] [address] ABD/PELVIS W CONon 2018 CT ABD/PELVIS W CON Patient: ANA GARNER Exam Date: 05/22/2019 : 1985 Gender:M Ordering : DR DIEGO CHAVEZ D.O. Admission #: [id number] Family : DR EDWARDO HATCH D.O. Order #: [id number] CLICK HERE TO VIEW EXAM RADIOLOGY REPORT CT OF THE ABDOMEN AND PELVIS WITH INTRAVENOUS CONTRAST 05-22-19: Sagittal and coronal reconstruction images performed. HISTORY: Acute right lower abdominal pain. Right flank pain. Diarrhea. FINDINGS: No acute process seen in the liver, pancreas, adrenal glands, kidneys, and spleen. A normal appendix is well seen. There is mild small bowel wall thickening in the left abdomen with a few small mesenteric nodes most consistent with underlying mesenteric adenitis and enteritis. No hydronephrosis, free air, or free fluid. No abscess. No small or large bowel obstruction. No large bowel wall thickening. Clear lung bases. IMPRESSION: 1. MILD ENTERITIS AND MILD MESENTERIC ADENITIS. 2. NORMAL APPENDIX. Dictated by: Shana YEUNG on 05/22/2019 at 21:23 Transcribed by: Diane on 06/27/2019 at 11:51 Approved by: Robbin Live M.D. on 07/12/2019 at 06:58 Normal [facility] D-DIMERon 05-22-2019 D-DIMER COMMENTS SEE BELOW Normal [facility] Comment on above: Result Comment: Incr eases in D-Dimer concentration observed with thromboembolic events can be variable due to localization, size, and age of the thrombus. Therefore, a thromboembolic event cannot be diagnosed with certainty on the basis of the reference range. D-Dimers may also be elevated for a variety of disorders including: advanced age, , coronary disease, cancer, liver disease, infection, inflammation, hematoma, DIC, trauma, post-surgery, diabetes, thrombolytic or anticoagulant therapy, stress, and generalizd hospitalization. Performed By: #### D DIM #### [facility] [address] [place] [address] Alicia Riggs Fibrin D-dimer FEU IA (Bld) [Mass/Vol] 0.47 ug/mL Normal 0.19-0.50 [facility] Comment on above: Performed By: #### D DIM #### [facility] [address] [place] [address] Aliciakeo Riggs LIPASEon 05-22-2019 Lipase [Catalytic activity/Vol] 164.0 U/L Normal 23.0-300.0 [facility] Comment on above: Performed By: #### B MP, LIVER, LIPA #### [facility] [address] [place] [address] Alicia Riggs LIVER PROFILEon 05-22-2019 Albumin [Mass/Vol] 3.7 g/dL Normal 3.5-5.0 [facility] Comment on above: Performed By: #### B MP, LIVER, LIPA #### [facility] [address] [place] [address] Aliciakeo Riggs Albumin/Globulin [Mass ratio] 1.0 {ratio} Normal [facility] Comment on above: Performed By: #### B MP, LIVER, LIPA #### [facility] [address] [place] [address] Alicia Keely ALP [Catalytic activity/Vol] 107 U/L Normal 38-126 [facility] Comment on above: Performed By: #### B MP, LIVER, LIPA #### [facility] [address] [address] Alicia Keely ALT [Catalytic activity/Vol] 21 U/L Normal 21-72 [facility] Comment on above: Performed By: #### B MP, LIVER, LIPA #### [facility] [address] [address] Alicia Keely AST [Catalytic activity/Vol] 14 U/L Critically low 17-59 [facility] Comment on above: Performed By: #### B MP, LIVER, LIPA #### [facility] [address] [address] Alicia Keely BILI, CONJUGATED 0.1 mg/dL Normal 0.0-0.3 [facility] Comment on above: Performed By: #### B MP, LIVER, LIPA #### [facility] [address] [address] Alicia Keely Bilirubin Ql (U) 0.5 mg/dL Normal 0.2-1.3 [facility] Comment on above: Performed By: #### B MP, LIVER, LIPA #### [facility] [address] [address] Alicia Keely Globulin (S) [Mass/Vol] 3.8 g/dL Normal [facility] Comment on above: Performed By: #### B MP, LIVER, LIPA #### [facility] [address] [address] Alicia Keely Protein [Mass/Vol] 7.5 g/dL Normal 6.1-8.2 [facility] Comment on above: Performed By: #### B MP, LIVER, LIPA #### [facility] [address] [phone] Alicia Keely PROF CHEM 8 (BAS METB)on Anion gap [Moles/Vol] 10.2 mmol/L Normal [facility] Comment on above: Performed By: #### B MP, LIVER, LIPA #### [facility] [address] [address] Alicia Keely Calcium [Mass/Vol] 9.6 mg/dL Normal 8.4-10.2 [facility] Comment on above: Performed By: #### B MP, LIVER, LIPA #### [facility] [address] [address] Alicia Keely Chloride [Moles/Vol] 103 mmol/L Normal 98-107 [facility] Comment on above: Performed By: #### B MP, LIVER, LIPA #### [facility] [address] [address] Alicia Keely CO2 [Moles/Vol] 30.8 mmol/L Critically high 22.0-30.0 [facility] Comment on above: Performed By: #### B MP, LIVER, LIPA #### [facility] [address] [place] [address] Alicia Keely Creatinine [Mass/Vol] 1.07 mg/dL Normal 0.66-1.25 [facility] Comment on above: Performed By: #### B MP, LIVER, LIPA #### [facility] [address] [place] [address] Alicia Keely EGFR-AF LUXEMBOURGER >60 Normal >=60 [facility] Comment on above: Performed By: #### B MP, LIVER, LIPA #### [facility] [address] [place] [address] Alicia Keely EGFR-NON AF LUXEMBOURGER >60 Normal >=60 [facility] Comment on above: Performed By: #### B MP, LIVER, LIPA #### [facility] [address] [place] [address] Alicia Keely Glucose [Mass/Vol] 158 mg/dL Critically high 74-106 [facility] Comment on above: Performed By: #### B MP, LIVER, LIPA #### [facility] [address] [place] [address] Alicia Keely Potassium [Moles/Vol] 4.0 mmol/L Normal 3.4-5.0 [facility] Comment on above: Performed By: #### B MP, LIVER, LIPA #### [facility] [address] [place] [address] Alicia Keely Sodium [Moles/Vol] 140 mmol/L Normal 137-145 [facility] Comment on above: Performed By: #### B MP, LIVER, LIPA #### [facility] [address], [place] [address] Alicia Riggs Urea nitrogen [Mass/Vol] 16.0 mg/dL Normal 9.0-20.0 [facility] Comment on above: Performed By: #### B MP, LIVER, LIPA #### [facility] [address], [place] [address] Alicia Riggs Urea nitrogen/Creatinine [Mass ratio] 15.0 mg/mg Normal [facility] Comment on above: Performed By: #### B MP, LIVER, LIPA #### [facility] [address], [place] [address] Alicia Riggs Encounters Encounter Date Encounter Type Care Provider Facility Start: 05-12-2024 End: 05-12-2024 Emergency department patient visit JIM SOLORZANO [facility] Start: 12-20-2019 End: 12-20-2019 Patient encounter procedure [facility] Facility:[facility] Start: 05-22-2019 End: 05-22-2019 Patient encounter procedure [facility] Payers Date Payer Category Payer Unknown [id number] 1985 Unknown [id number] 1985 Unknown [id number] 1983 Unknown [id number] 1959 Unknown [id number] Summary Purpose Family History No Family History Records FoundNo Family History Records Found Advance Directives No Advanced Directives Records FoundNo Advanced Directives Records Found Additional Source Comments (unrecognized sect ion and content) No Status Records FoundNo Status Records Found INFORMATION SOURCE (unrecogn ized section and content) DATE CREATED AUTHOR 12/22/2019 [facility] DATE CREATED AUTHOR 'S ORGANIZ ATION 05/18/2024 [facility] FOR RECORDS PERTAINING TO PATIENTS WHO ARE OR HAVE BEEN ENROLLED IN A CHEMICAL DEPENDENCY/SUBSTANCEABUSE PROGRAM, SOME INFORMATION MAY BE OMITTED. This clinical summary was aggregated from multiple sources. Caution should be exercised in using it in the provision of clinical care. This summary normalizes information from multiple sources, and as a consequence, information in this document may materially change the coding, format and clinical context of patient data. In addition, data may be omitted in some cases. CLINICAL DECISIONS SHOULD BE BASED ON THE PRIMARY CLINICAL RECORDS. [employer] [facility]. provides no warranty or guarantee of the accuracy or completeness of information in this document.
--- NOTE | 2024-05-18 16:26 | PC.NURSE ---
pt fell 35ft at work and onto R side a few days ago and was shipped to [facility] in [place]. Fx'd L1-L5. Pt is set to see neurosurgeon on jun 05 -- but ran out of pain medication.
== END 2024-05-18 16:35 | disposition home or self-care (01) ==
PROVIDERS: Emergency Provider Emergency Medicine Emergency Medical Services
DX: Z76.0 Encounter for issue of repeat prescription (principal); F17.200 Nicotine dependence, unspecified, uncomplicated
CPT/HCPCS: 99283